=== PATIENT | female | born 1980 ===

== ENCOUNTER 2018-07-21 15:58 | Inpatient (IN) | payer OTHER ==
[~2018-07-21] VITALS: Ht 160 cm; Wt 3.2 kg
[2018-08-10] MEDS ORDERED: PRENATABS RX T1 EACH PO (19:34)
[2018-08-10] MEDS ORDERED: PROBIOTIC1 EAC2 PO (19:35)
[2018-08-15] MEDS ORDERED: LEVSIN/SL0.125 MG PO (09:42)
[2018-08-15] MEDS ORDERED: IBUPROFEN800 MG PO (09:42)
[2018-08-15] MEDS ORDERED: CODE1TAB37 PO (09:42)
== END 2018-08-15 12:10 | disposition home or self-care (01) | DRG 788 ==
LOC: LDR 08-10 13:30 → OB/GYN 08-10 18:18 → LDR 08-10 18:18 → O/R 08-12 10:16 → OB/GYN 08-12 10:39
PROVIDERS: Obstetrics & Gynecology
PROC: 4A1HXCZ Monitoring of Products of Conception, Cardiac Rate, External Approach (ICD-10-PCS; 2018-08-10)
PROC: 4A033R1 Measurement of Arterial Saturation, Peripheral, Percutaneous Approach (ICD-10-PCS; 2018-08-12)
PROC: 10D00Z1 Extraction of Products of Conception, Low, Open Approach (ICD-10-PCS; principal; 2018-08-12 13:15)
DX: O76 Abnormality in fetal heart rate and rhythm complicating labor and delivery (principal); Z3A.40 40 weeks gestation of pregnancy; Z37.0 Single live birth

== ENCOUNTER → 2024-01-01 11:29 | Outpatient (CLI) | payer OTHER ==
[~2024-01-01 11:29] MED LIST: CODE1TAB37 PO; IBUPROFEN800 MG PO; LEVSIN/SL0.125 MG PO; PRENATABS RX T1 EACH PO; PROBIOTIC1 EAC2 PO
== END | disposition home or self-care (01) ==
LOC: PRENATAL 11:29
PROVIDERS: ATTEND Obstetrics & Gynecology Maternal & Fetal Medicine
DX: O35.3XX0 Maternal care for (suspected) damage to fetus from viral disease in mother, not applicable or unspecified (principal); O44.00 Complete placenta previa NOS or without hemorrhage, unspecified trimester; O09.529 Supervision of elderly multigravida, unspecified trimester; O34.219 Maternal care for unspecified type scar from previous cesarean delivery; Z3A.20 20 weeks gestation of pregnancy

== ENCOUNTER 2024-05-05 06:12 | Inpatient (IN) | payer OTHER ==
[~2024-05-05] VITALS: Ht 162.6 cm; Wt 2.7 kg
[2024-05-05] MEDS ORDERED: MUCINEX600 MG PO (07:42)
[2024-05-05] MEDS ORDERED: VITAMIN C60 MG PO (07:43)
[2024-05-05] MEDS ORDERED: MULTI VITAMIN1 EACH PO (07:43)
[2024-05-05] MEDS ORDERED: CHILDREN'S ASPI81 MG PO (07:44)
[2024-05-05 08:03] LABS: URINE APPEARANCE Clear; URINE BILIRRUBIN Negative (NEGATIVE); URINE BLOOD Negative; URINE COLOR Yellow; URINE GLUCOSE Negative (NEGATIVE); URINE LEUKOCYTE Negative; URINE NITRATE Negative; URINE PROTEIN Negative (NEGATIVE); URINE UROBILINOGEN 0.2 E.U./dl
[2024-05-05 08:05] LABS: URINE EPITHELIAL CELLS 51.3 uL (0.0-38.8); URINE RBC 14.8 uL (0.0-20.8); URINE WBC 44.9 uL (0.0-23.2)
[2024-05-05 08:06] LABS: HEMOGLOBIN 12.8 g/dL (12.0-15.00); MEAN CELL VOLUME 93.2 fL (80.00-100.00); MEAN CORPUSCULAR HEMOGLOBIN 32.3 pg (27.00-32.0); MEAN CORPUSCULAR HGB CONC 34.7 g/dl (32.0-36.0); PLATELET COUNT 238 K/uL (150-450); RED BLOOD COUNT 3.97 M/uL (4.00-6.00); RED CELL DISTRIBUTION WIDTH 13.5 % (11.5-14.5)
[2024-05-05 08:36] LABS: INR < 0.93; PARTIAL THROMBOPLASTIN TIME 26.5 SECONDS (22.0-34.0); PROTHROMBIN TIME 9.4 SECONDS (9.0-11.5)
[2024-05-05 08:41] LABS: ALBUMIN 2.7 gm/dL (3.4-5.0); BILIRUBIN TOTAL 0.23 mg/dL (0.3-1.2); CALCIUM 8.6 mg/dL (8.5-10.1); CREATININE SERUM 0.48 mg/dL (0.55-1.02); GFR 141.15; GLOBULINA 3.3 G/DL (2.4-3.5); POTASSIUM 3.93 mEq/L (3.5-5.1)
[2024-05-05] MEDS ORDERED: ERYTHROMYCIN BASE 1 GM TUBE OP ONE ×2 (13:35→15:00)
[2024-05-05] MEDS ORDERED: OXYTOCIN 10 UNITS/ML VIAL ONE (13:35)
[2024-05-05] MEDS ORDERED: OXYTOCIN 20 UNITS/1000ML RL PIGGYBAG IV SCH (15:00)
[2024-05-05] MEDS ORDERED: MEPERIDINE HCL/PF 50 MG/ML VIAL IV SCH (15:19)
[2024-05-05] MEDS ORDERED: OXYTOCIN 1,000 ML IV SCH (15:30)
[2024-05-05] MEDS ORDERED: RINGERS SOLUTION,LACTATED 1,000 ML IV SCH (15:30)
[2024-05-05] MEDS ORDERED: ERYTHROMYCIN BASE 1 GM TUBE OP SCH (15:30)
[2024-05-05] MEDS ORDERED: CHLORHEXIDINE GLUCONATE 120 ML BOTTLE TOP SCH (15:30)
[2024-05-05] MEDS ORDERED: SIMETHICONE 125 MG CAPSULE PO SCH (18:00)
[2024-05-05] MEDS ORDERED: PROMETHAZINE HCL 50 MG/ML AMPUL IM SCH (18:00)
[2024-05-05 19:14] LABS: HEMATOCRIT 33.1 % (36.0-45.00); HEMOGLOBIN 11.7 g/dL (12.0-15.00); MEAN CELL VOLUME 91.3 fL (80.00-100.00); MEAN CORPUSCULAR HEMOGLOBIN 32.1 pg (27.00-32.0); MEAN CORPUSCULAR HGB CONC 35.2 g/dl (32.0-36.0); PLATELET COUNT 216 K/uL (150-450); RED BLOOD COUNT 3.63 M/uL (4.00-6.00)
[2024-05-05] MEDS ORDERED: NAPROXEN 500 MG TABLET PO SCH (21:15)
[2024-05-05] MEDS ORDERED: ACETAMINOPHEN WITH CODEINE 1 UDTAB TABLET PO PRN (21:15)
[2024-05-06] MEDS ORDERED: DOCUSATE SODIUM 100MG CAP PO SCH (09:00)
[2024-05-08] MEDS ORDERED: NAPR500T14 PO (14:27)
== END 2024-05-08 14:50 | disposition home or self-care (01) | DRG 788 ==
LOC: O/R 06:12 → LDR 06:12 → OB/GYN 06:12 → LDR 07:32 → O/R 13:45 → OB/GYN 18:54
PROVIDERS: ADMIT Obstetrics & Gynecology; ATTEND Obstetrics & Gynecology
PROC: 4A1HXCZ Monitoring of Products of Conception, Cardiac Rate, External Approach (ICD-10-PCS; 2024-05-05)
PROC: 10D00Z1 Extraction of Products of Conception, Low, Open Approach (ICD-10-PCS; principal; 2024-05-05 13:30)
DX: O34.211 Maternal care for low transverse scar from previous cesarean delivery (principal); Z3A.38 38 weeks gestation of pregnancy; Z37.0 Single live birth; Z20.822 Contact with and (suspected) exposure to COVID-19